=== PATIENT | female | born 1950 | race American Indian/Alaskan Native ===

== ENCOUNTER 2022-01-09 16:22 | Emergency (ER) | payer MEDICARE ==
[2022-01-09] MEDS ORDERED: ACETAMINOPHEN 500 MG TAB PO ONE (16:38)
--- NOTE | 2022-01-09 16:38 | Emergency Department Report ---
ED Lower Extremity HPI - General Chief Complaint: Extremity Injury, Lower Stated Complaint: LT KNEE SWELLING Time Seen by Provider: 01/09/22 16:37 Source: patient, EMS (Verbal report received from emergency medical services. EMS documentation not available at time of chart dictation ), RN notes reviewed, old records reviewed Mode of arrival: Stretcher - History of Present Illness Initial Comments: This patient is a pleasant 71-year-old female, who currently takes Coumadin, s econdary to Arian saul, who presents to the ER today with complaint of left knee pain and swelling, and left medial thigh ecchymosis. Patient reports that she is compliant with Coumadin, and last had INR checked about a month ago. She reports that her tax lawyer recently retired, and she is not sure who is replacing them. Patient reports that she recently got back from a short trip from [place], and accidentally hit her left knee and left medial thigh with her baggage this past Sunday. Since then, she has had left medial thigh ecchymosis, and left medial knee pain. She denies additional injuries and complaints. She has not taken pain medication that she is aware of. She lives at home with family, and is typically ambulatory with a cane. EMS reports unremarkable vital signs in the field, further reports patient is ambulatory in the field with assistance MD Complaint: knee injury -: days(s) Injury: Thigh: Left, Leg: Left Type of Injury: blunt Place: other (Patient was at the baggage [place]) Severity: mild Improves With: rest Worsens With: palpation Context: direct blow Associated Symptoms: swelling - Related Data Allergies Allergy/AdvReac Type Severity Reaction Status Date / Time latex Allergy Hives Verified 07/19/15 20:35 morphine Allergy Swelling Verified 07/19/15 20:35 ED Review of Systems ROS: Stated complaint: LT KNEE SWELLING Other details as noted in HPI Comment: All other systems reviewed and negative Musculoskeletal: arthralgia Hematological/Lymphatic: easy bruising ED Past Medical Hx - Past Medical History Hx Hypertension: Yes Additional medical history: a-fib - Surgical History Additional Surgical History: hysterectomy, trach - Social History Smoking Status: Former Smoker Substance Use Type: None ED Physical Exam - General Limitations: No Limitations General appearance: alert, in no apparent distress, obese - Head Head exam: Present: atraumatic, normocephalic - Eye Eye exam: Present: normal appearance, EOMI. Absent: nystagmus - ENT ENT exam: Present: normal exam, normal orophraynx, mucous membranes moist, normal external ear exam - Neck Neck exam: Present: normal inspection, full ROM. Absent: tenderness, meningismus - Respiratory Respiratory exam: Present: normal lung sounds bilaterally. Absent: respiratory distress, wheezes, rales, rhonchi, stridor, decreased breath sounds - Cardiovascular Cardiovascular Exam: Present: normal rhythm, irregular rhythm, normal heart sounds. Absent: bradycardia, tachycardia, systolic murmur, diastolic murmur, rubs, gallop - GI/Abdominal GI/Abdominal exam: Present: soft. Absent: distended, tenderness, guarding, rebound, rigid, pulsatile mass - Extremities Exam Extremities exam: Present: full ROM (Range of motion is intact in the bilateral upper extremities and bilateral lower extremities. Range of motion intact but slow in the left lower extremity.), tenderness (There is left medial knee tenderness), normal capillary refill, joint swelling, other (2+ pulses noted in the bilateral upper and lower extremities. There is no palpable cord. negative Homans sign. Muscular compartments are soft. The pelvis is stable.). Absent: normal inspection (There is left medial thigh ecchymosis), calf tenderness - Back Exam Back exam: Present: normal inspection. Absent: tenderness, CVA tenderness (R), CVA tenderness (L), paraspinal tenderness, vertebral tenderness - Neurological Exam Neurological exam: Present: alert, oriented X3, other (No facial droop. Tongue midline. Extraocular movements intact bilaterally. Facial sensation intact to light touch in V1, V2, V3 distribution bilaterally. 5 and a 5 strength in 4 extremities. Sensation intact to light touch in 4 extremities.). Absent: motor sensory deficit - Psychiatric Psychiatric exam: Present: normal affect, normal mood - Skin Skin exam: Present: warm, abrasion. Absent: rash ED Course Vital Signs 01/09/22 17:55 Temperature 98.7 F Pulse Rate 78 Respiratory 18 Rate Blood Pressure 154/65 [Left] O2 Sat by Pulse 100 Oximetry - Reevaluation(s) Reevaluation #1: 01/09/22 17:22 Differential diagnosis, including but not limited to: Sprain, strain, fracture, dislocation, anticoagulated, soft tissue contusion Assessment and plan: 71-year-old female, who is afebrile, with reassuring vital signs, with no lower extremity redness, pus, streaking, range of motion intact in left lower extremity, likely joint effusion, with a component of arthritis. Patient is not currently tachycardic, tachypneic or hypoxic, she does not have asymmetric lower extremity swelling, and she is anticoagulated. DVT is very unlikely. Ecchymosis to left medial thigh likely secondary to blunt trauma, and concomitant presence of Coumadin use. We will treat the patient's pain, obtain x-ray of the left knee, and obtain laboratory studies to evaluate PT/INR. Discussed this with the patient. She is agreeable to this plan of care. Reassess 01/09/22 18:49 Patient reassessed. Laboratory studies reviewed and appreciated. Patient advised to hold Coumadin for 48 hours, and follow-up with primary care doctor or tax lawyer for repeat checkup and evaluation. X-ray shows no fracture or dislocation, but does show effusion, as well as DJD. Mild renal insufficiency reviewed and appreciated. Avoid Motrin, NSAIDs, MATEO inhibitors, lisinopril, follow-up with primary care for recheck. Return precautions reviewed. All questions answered. Patient articulates understanding ED Lower Extremity MDM - Lab Data Result diagrams: 01/09/22 16:43 01/09/22 16:43 Lab Results 01/09/22 01/09/22 Range/Units 16:43 16:43 WBC 8.6 (4.5-11.0) K/mm3 RBC 4.15 (3.65-5.03) M/mm3 Hgb 12.9 (10.1-14.3) gm/dl Hct 38.9 (30.3-42.9) % MCV 94 (79-97) fl MCH 31 (28-32) pg MCHC 33 (30-34) % RDW 14.9 (13.2-15.2) % Plt Count 245 (140-440) K/mm3 PT 42.8 H (12.2-14.9) Sec. INR 3.81 H (0.87-1.13) APTT 55.4 H (24.2-36.6) Sec. Vital Signs 01/09/22 17:55 Temperature 98.7 F Pulse Rate 78 Respiratory 18 Rate Blood Pressure 154/65 [Left] O2 Sat by Pulse 100 Oximetry Lab Results 01/09/22 01/09/22 01/09/22 Range/Units 16:43 16:43 16:43 WBC 8.6 (4.5-11.0) K/mm3 RBC 4.15 (3.65-5.03) M/mm3 Hgb 12.9 (10.1-14.3) gm/dl Hct 38.9 (30.3-42.9) % MCV 94 (79-97) fl MCH 31 (28-32) pg MCHC 33 (30-34) % RDW 14.9 (13.2-15.2) % Plt Count 245 (140-440) K/mm3 PT 42.8 H (12.2-14.9) Sec. INR 3.81 H (0.87-1.13) APTT 55.4 H (24.2-36.6) Sec. Sodium 143 (137-145) mmol/L Potassium 4.5 (3.6-5.0) mmol/L Chloride 105.4 (98-107) mmol/L Carbon Dioxide 22 (22-30) mmol/L Anion Gap 20 mmol/L BUN 59 H (7-17) mg/dL Creatinine 1.7 H (0.6-1.2) mg/dL Estimated GFR 36 ml/min BUN/Creatinine Ratio 35 % Glucose 109 H (65-100) mg/dL Calcium 9.4 (8.4-10.2) mg/dL - Radiology Data Radiology results: pending, report reviewed, image reviewed LEFT KNEE 3 VIEWS INDICATION / CLINICAL INFORMATION: left knee pain COMPARISON: None available. FINDINGS: BONES / JOINT(S): No acute fracture or subluxation. There is advanced tricompartmental osteoarthrosis greatest at the medial compartment. SOFT TISSUES: Moderate to large suprapatellar joint effusion. ADDITIONAL FINDINGS: None. IMPRESSION: 1. Advanced tricompartmental osteoarthrosis. 2. Moderate to large suprapatellar joint effusion. Signer Name: Eber Sales MD Signed: 01/09/2022 4:33 PM Workstation Na me: [id number] Critical care attestation.: If time is entered above; I have spent that time in minutes in the direct care of this critically ill patient, excluding procedure time. ED Disposition Clinical Impression: Anticoagulated Traumatic ecchymosis of left thigh Qualifiers: Encounter type: initial encounter Qualified Code(s): S70.12XA - Contusion of left thigh, initial encounter Left knee pain Qualifiers: Chronicity: acute Qualified Code(s): M25.562 - Pain in left knee Disposition: 01 HOME / SELF CARE / HOMELESS Is pt being admited?: No Does the pt Need Aspirin: No Condition: Good Additional Instructions: Please follow-up with a primary care doctor or tax lawyer for INR recheck in the next 48 to 72 hours. Hold Coumadin for the next 48 hours. Alternate ice packs and heat packs as needed for physical pain, and take Tylenol over-the- counter as needed for physical pain. Ambulate with a cane or walker, and do not take Motrin, ibuprofen, Naprosyn, Aleve. Please have your primary care doctor or tax lawyer contact the medical records department to obtain copies of laboratory studies and radiology studies, to follow-up on nonemergent incidental abnormal findings. For the patient's convenience, local primary care and cardiology have been listed that she may follow-up with. please return to the emergency room right away with new pain, worsened pain, migration of pain, projectile vomiting, change in mental status, confusion, inability tolerate liquid feeds, new, worsened or different symptoms not present on the initial emergency room evaluation Patient found to have very mild renal insufficiency, advised that patient not take MATEO inhibitor medication, if she is currently prescribed this medication. MATEO inhibitor medications include lisinopril. Referrals: [facility] [Provider Group] - 2-3 Days [facility] [Provider Group] - 2-3 Days
--- NOTE | 2022-01-09 17:37 | XRay Report ---
LEFT KNEE 3 VIEWS INDICATION / CLINICAL INFORMATION: left knee pain COMPARISON: None available. FINDINGS: BONES / JOINT(S): No acute fracture or subluxation. There is advanced tricompartmental osteoarthrosis greatest at the medial compartment. SOFT TISSUES: Moderate to large suprapatellar joint effusion. ADDITIONAL FINDINGS: None. IMPRESSION: 1. Advanced tricompartmental osteoarthrosis. 2. Moderate to large suprapatellar joint effusion. Signer Name: Eber Sales MD Signed: 01/09/2022 5:33 PM Workstation Name: [id number]
[2022-01-09 17:54] LABS: Hematocrit 38.9 % (30.3-42.9); Hemoglobin 12.9 gm/dl (10.1-14.3); Mean Corpuscular HGB Conc 33 % (30-34); Mean Corpuscular Volume 94 fl (79-97); Platelet Count 245 K/mm3 (140-440); Red Blood Count 4.15 M/mm3 (3.65-5.03); Red Cell Distribution Width 14.9 % (13.2-15.2)
[2022-01-09 18:04] LABS: INR 3.81 (0.87-1.13)
[2022-01-09 18:05] LABS: Partial Thromboplastin Time 55.4 Sec. (24.2-36.6)
[2022-01-09 18:16] VITALS: BP 154/65
[2022-01-09 18:43] LABS: Calcium 9.4 mg/dL (8.4-10.2)
== END 2022-01-09 19:35 | disposition home or self-care (01) ==
LOC: ED 16:22
DX: S70.12XA Contusion of left thigh, initial encounter (principal); M25.562 Pain in left knee; Z79.01 Long term (current) use of anticoagulants; X58.XXXA Exposure to other specified factors, initial encounter; Y93.89 Activity, other specified; Y92.89 Other specified places as the place of occurrence of the external cause; Y99.8 Other external cause status
CPT/HCPCS: 36415; 80048; 85027; 85610; 85730; 99284